=== PATIENT | female | born 1970 | race Caucasian/White ===

== ENCOUNTER 2018-11-26 10:14 | Emergency (ER) | payer OTHER ==
[~2018-11-26] VITALS: Ht 152.4 cm; Wt 122.5 kg
--- NOTE | ~2018-11-26 | EKG ---
[place], [place] ELECTROCARDIOGRAM REPORT NAME: NAREN JUAREZ UNIT #: [id number] ROOM: DOCTOR: EPIPHANY DRAFT REPORT BIRTHDATE: [birth year] [facility] Test Date: 2018-11-26 Test Time: 10:52:47 Pat Name: NAREN JUAREZ Department: Room: Gender: F [employer]ush [employer] Maker: : [id number] Requested By: ANUPAMA MAURER DNP Order Number: [id number] Reading MD: Toni Little MD Measurements Intervals [place] Rate: 60 P: 34 CO: 172 QRS: -2 QRSD: 97 T: 7 QT: 429 QTc: 429 Interpretive Statements Sinus rhythm Left ventricular hypertrophy Electronically Signed On 11-28-2018 7:01:48 PDT by Toni Little MD CM:EKGRPT:ELECTROCARDIOGRAM REPORT [id number] ANUPAMA MAURER DNP EPIPHANY DRAFT REPORT ANUPAMA MAURER DNP
[~2018-11-26 10:14] MED LIST: ZOFRAN4 MG PO
== END 2018-11-26 12:21 | disposition home or self-care (01) ==
LOC: ED
DX: S16.1XXA Strain of muscle, fascia and tendon at neck level, initial encounter (principal); M25.512 Pain in left shoulder; R42 Dizziness and giddiness; R51 Headache; I10 Essential (primary) hypertension; Z90.49 Acquired absence of other specified parts of digestive tract; V89.2XXA Person injured in unspecified motor-vehicle accident, traffic, initial encounter; Y93.89 Activity, other specified; Y92.488 Other paved roadways as the place of occurrence of the external cause; Y99.8 Other external cause status

== ENCOUNTER 2019-05-11 22:24 | Emergency (ER) | payer OTHER ==
[~2019-05-11] VITALS: Ht 160 cm; Wt 109.5 kg
[2019-05-11 22:59] LABS: BILIRUBIN NEGATIVE (NEGATIVE); BLOOD NEGATIVE (NEGATIVE); CLARITY CLEAR (CLEAR); COLOR YELLOW (YELLOW); GLUCOSE NEGATIVE (NEGATIVE); KETONE NEGATIVE (NEGATIVE); LEUKO ESTERASE NEGATIVE (NEGATIVE); NITRITE NEGATIVE (NEGATIVE); SPECIFIC GRAVITY <= 1.005 (1.005-1.030); UROBILINOGEN 0.2 E.U./dl (0.2-1.0)
[2019-05-11 23:06] LABS: URINE AMPHETAMINES < 1000 (1000ng/ml); URINE BARBITURATES < 200 (200ng/ml); URINE BENZODIAZEPINES < 200 (200ng/ml); URINE CANNABINOIDS (THC) < 50 (50ng/ml); URINE COCAINE < 300 (300ng/ml); URINE METHADONE < 300 (300ng/ml); URINE OPIATES > 300 (300ng/ml)
[2019-05-11 23:11] LABS: URINE PHENCYCLIDINE < 25 (25ng/ml)
[2019-05-11 23:14] LABS: RBC 0-2 rbc/hpf (0-2)
[2019-05-11 23:25] LABS: ALBUMIN 3.2 gm/dl (3.1-4.5); ALKALINE PHOSPHATASE 188 U/L (45-117); BUN 4 mg/dl (7-24); CHLORIDE 112 mmol/L (98-107); CREATININE 0.98 mg/dL (0.55-1.02); POTASSIUM 3.3 mmol/L (3.5-5.1); SGOT/AST 52 IU/L (3-35); SGPT/ALT 41 U/L (12-78); SODIUM 143 mmol/L (136-145); TOTAL PROTEIN 6.8 gm/dL (6.4-8.2)
[2019-05-11 23:30] LABS: ETHYL ALCOHOL < 3.0 mg/dl (<3); TROPONIN I < 0.015 ng/ml (<0.045)
[2019-05-11 23:35] LABS: BASO # 0.1 10*3/uL (0.0-0.1); BASO % 0.6 % (0.0-1.0); EOS # 0.2 10*3/uL (0.0-0.4); EOS % 1.7 % (1.0-4.0); HEMATOCRIT 42.1 % (37.0-47.0); HEMOGLOBIN 13.4 g/dl (12.0-16.0); LYMPH % 20.2 % (27.0-41.0); MEAN CELL VOLUME 98.6 fl (81.0-99.0); MEAN CORPUSCULAR HGB 31.4 pg (27.0-31.0); MEAN CORPUSCULAR HGB CONC 31.8 g/dl (33.0-37.0); MEAN PLATELET VOLUME 11.5 fl (9.6-12.3); MONO # 0.7 10*3/uL (0.1-1.0); MONO % 7.6 % (3.0-9.0); NEUT # 6.8 10*3/uL (2.3-7.9); NEUT % 69.5 % (47.0-73.0); PLATELET COUNT AUTOMATED 242 10*3/uL (130-400); RED BLOOD COUNT 4.27 10*6/uL (4.10-5.10); RED CELL DISTRI WIDTH 14.1 % (0-14.5); WHITE BLOOD COUNT 9.8 10*3/uL (4.8-10.8)
[2019-05-12] MEDS ORDERED: CARISOPRODOL350 M1 PO (00:11)
[2019-05-12] MEDS ORDERED: PROAIR HFA8.5 GM INH (00:11)
[2019-05-12] MEDS ORDERED: LYRICA200 M1 PO (00:11)
[2019-05-12] MEDS ORDERED: SPIRONOLACTONE50 M1 PO (00:12)
[2019-05-12] MEDS ORDERED: METOPROLOL SUCC50 M1 PO (00:12)
[2019-05-12] MEDS ORDERED: BUSPIRONE HCL10 MG PO (00:12)
[2019-05-12] MEDS ORDERED: MORPHINE SULFAT20 M2 PO (00:13)
[2019-05-12] MEDS ORDERED: ESOMEPRAZOLE MA40 M1 PO (00:13)
[2019-05-12] MEDS ORDERED: CLOPIDOGREL75 MG PO (00:13)
[2019-05-12] MEDS ORDERED: PERCOCET 7.5-31 EACH PO (00:14)
== END 2019-05-12 01:41 | disposition short-term general hospital (02) ==
LOC: ED 22:24
PROVIDERS: Emergency Medicine
DX: R47.01 Aphasia (principal); R47.81 Slurred speech; R41.0 Disorientation, unspecified; R32 Unspecified urinary incontinence; R40.20 Unspecified coma; Z86.73 Personal history of transient ischemic attack (TIA), and cerebral infarction without residual deficits